=== PATIENT | male | born 1930 | race Caucasian/White ===

== ENCOUNTER → 2017-02-25 | Outpatient (CLI) | payer OTHER ==
[~2017-02-25] MED LIST: COU2 PO; HYDROCHLOROTHIA PO; HYDROCHLOROTHIA25 MG PO; K10 PO; LEXAPRO10 MG PO; LEXAPRO5 MG PO; METFORMIN ER500 M1 PO; METFORMIN1000 MG PO; METFORMIN850 M1 GT; METOPROLOL25 MG PO; PENTOXIFYL XR400 M1 PO; PRI20 PO; XARELTO10 M1 PO; ZES5 PO; ZOC20 PO
== END | disposition home or self-care (01) ==
LOC: US 15:20
PROC: BT40ZZZ Ultrasonography of Bladder (ICD-10-PCS; principal; 2017-02-25)
DX: N30.91 Cystitis, unspecified with hematuria (principal)
CPT/HCPCS: 76770; Q0092

== ENCOUNTER 2017-10-21 12:35 | Emergency (ER) | payer OTHER ==
[~2017-10-21] VITALS: Ht 165.1 cm; Wt 77.1 kg
[2017-10-21 12:46] VITALS: Ht 165.1 cm; Wt 77.1 kg
[2017-10-21 13:31] LABS: BASOPHIL % 0.3 % (0-2); PLATELET COUNT 191 x10^3mcL (130-400)
[2017-10-21 13:40] LABS: RED CELL DISTRIBUTION WIDTH 16.1 % (11.5-14.5)
[2017-10-21 14:38] LABS: CALCIUM 8.4 mg/dL (8.5-10.1); CARBON DIOXIDE 24.7 mmol/L (21-32); CHLORIDE SERUM 103 mmol/L (98-107); GLUCOSE SERUM 368 mg/dL (74-106); SODIUM SERUM 137 mmol/L (136-145)
[2017-10-21 17:44] VITALS: BP 135/72
== END 2017-10-21 17:44 | disposition home or self-care (01) ==
LOC: ED 12:35
PROVIDERS: Emergency Medicine
DX: S20.219A Contusion of unspecified front wall of thorax, initial encounter (principal); I10 Essential (primary) hypertension; E11.9 Type 2 diabetes mellitus without complications; E78.00 Pure hypercholesterolemia, unspecified; W01.0XXA Fall on same level from slipping, tripping and stumbling without subsequent striking against object, initial encounter; Y93.89 Activity, other specified; Y92.89 Other specified places as the place of occurrence of the external cause; Y99.8 Other external cause status
CPT/HCPCS: J2405; J3010; Q9967

== ENCOUNTER 2017-12-03 10:38 | Emergency (ER) | payer OTHER ==
[~2017-12-03] VITALS: Ht 157.5 cm; Wt 74.8 kg
[2017-12-03 11:29] LABS: BASOPHIL % 0.5 % (0-2); PLATELET COUNT 192 x10^3mcL (130-400); RED CELL DISTRIBUTION WIDTH 15.4 % (11.5-14.5)
[2017-12-03 11:47] LABS: CALCIUM 9.5 mg/dL (8.5-10.1); CARBON DIOXIDE 24.3 mmol/L (21-32); CHLORIDE SERUM 101 mmol/L (98-107); CREATININE SERUM 0.9 mg/dL (0.7-1.3); GLUCOSE SERUM 172 mg/dL (74-106); POTASSIUM SERUM 4.1 mmol/L (3.5-5.1); SODIUM SERUM 136 mmol/L (136-145)
[2017-12-03 11:52] LABS: ALBUMIN 3.8 g/dL (3.4-5.0); ALKALINE PHOSPHATASE 102 U/L (46-116); ALT/SGPT 27 U/L (16-63); AST/SGOT 26 U/L (15-37); BILIRUBIN TOTAL 0.9 mg/dL (0.20-1.00); TOTAL PROTEIN, SERUM 7.5 g/dL (6.4-8.2)
[2017-12-03] MEDS ORDERED: SIMVASTATIN40 M1 PO (11:54)
[2017-12-03] MEDS ORDERED: METOPROLOL TART25 M1 PO (11:54)
[2017-12-03] MEDS ORDERED: GLUCOTROL5 MG PO (11:54)
[2017-12-03] MEDS ORDERED: METFORMIN HCL850 MG PO (11:55)
[2017-12-03 12:52] VITALS: BP 118/67
[2017-12-03 12:52] LABS: UA SPECIFIC GRAVITY >=1.030 (1.005-1.035); microscopic required? YES; urine erythrocyte TRACE (NEGATIVE)
== END 2017-12-03 13:11 | disposition home or self-care (01) ==
LOC: ED 10:38
PROVIDERS: Emergency Medicine
DX: N39.0 Urinary tract infection, site not specified (principal); I10 Essential (primary) hypertension; E11.9 Type 2 diabetes mellitus without complications; F03.90 Unspecified dementia, unspecified severity, without behavioral disturbance, psychotic disturbance, mood disturbance, and anxiety; E78.00 Pure hypercholesterolemia, unspecified; I49.9 Cardiac arrhythmia, unspecified; Z95.0 Presence of cardiac pacemaker
CPT/HCPCS: J2405; Q0092

== ENCOUNTER 2018-12-23 09:50 | Emergency (ER) | payer OTHER, MEDICAID ==
[~2018-12-23] VITALS: Ht 165.1 cm; Wt 83.9 kg
[~2018-12-23 09:50] MED LIST changes: +GLUCOTROL5 MG PO; +METFORMIN HCL850 MG PO; +METOPROLOL TART25 M1 PO; +SIMVASTATIN40 M1 PO
[2018-12-23 09:52] VITALS: Ht 165.1 cm; Wt 83.9 kg
[2018-12-23 12:44] VITALS: BP 104/61
== END 2018-12-23 12:44 | disposition home or self-care (01) ==
LOC: ED 09:50
DX: G56.02 Carpal tunnel syndrome, left upper limb (principal); I10 Essential (primary) hypertension; E11.9 Type 2 diabetes mellitus without complications; E78.00 Pure hypercholesterolemia, unspecified; Z95.0 Presence of cardiac pacemaker

== ENCOUNTER 2019-01-15 10:10 | Emergency (ER) | payer OTHER, MEDICAID ==
[~2019-01-15] VITALS: Ht 152.4 cm; Wt 75.3 kg
[2019-01-15 10:14] VITALS: Ht 152.4 cm; Wt 75.3 kg
[2019-01-15 11:51] VITALS: BP 102/50
== END 2019-01-15 11:52 | disposition home or self-care (01) ==
LOC: ED 10:10
DX: S09.90XA Unspecified injury of head, initial encounter (principal); I10 Essential (primary) hypertension; E11.9 Type 2 diabetes mellitus without complications; E78.00 Pure hypercholesterolemia, unspecified; W18.09XA Striking against other object with subsequent fall, initial encounter; Y93.89 Activity, other specified; Y92.89 Other specified places as the place of occurrence of the external cause; Y99.8 Other external cause status

== ENCOUNTER 2019-03-15 09:47 | Emergency (ER) | payer OTHER ==
[~2019-03-15] VITALS: Ht 152.4 cm; Wt 74.4 kg
[2019-03-15 09:56] VITALS: Ht 152.4 cm; Wt 74.4 kg
[2019-03-15 11:06] LABS: UA SPECIFIC GRAVITY 1.015 (1.005-1.035); microscopic required? YES; urine erythrocyte 3+ (NEGATIVE)
[2019-03-15 12:18] VITALS: BP 125/62
== END 2019-03-15 12:18 | disposition home or self-care (01) ==
LOC: ED 09:47
PROVIDERS: Emergency Medicine
DX: N39.0 Urinary tract infection, site not specified (principal); S80.12XA Contusion of left lower leg, initial encounter; I10 Essential (primary) hypertension; E11.9 Type 2 diabetes mellitus without complications; E78.00 Pure hypercholesterolemia, unspecified; Z95.0 Presence of cardiac pacemaker; Z85.46 Personal history of malignant neoplasm of prostate; X58.XXXA Exposure to other specified factors, initial encounter; Y93.89 Activity, other specified; Y92.89 Other specified places as the place of occurrence of the external cause; Y99.8 Other external cause status